=== PATIENT | male | born 1940 | race Caucasian/White ===

== ENCOUNTER 2020-05-17 11:27 | Emergency (ER) | payer MEDICARE, OTHER ==
[~2020-05-17] VITALS: Ht 172.7 cm; Wt 76.7 kg
[2020-05-17 11:29] VITALS: BP 130/75
--- NOTE | 2020-05-17 11:46 | NUR ---
PT'S DAUGTHER AT BEDSIDE
--- NOTE | 2020-05-17 11:46 | NUR ---
[facility] AND [employer] FOUND ON THE STRE[address] WALKING AROUND. PT IS CONFUSED BUT ABLE TO FOLLOW COMMANDS. NO MEDICAL COMPLAINTS. PT STATES THAT IT WAS HOT WALKING OUTSIDE. NOT NOTED VISUAL INJURY. MD WAS AT THE BEDSIDE FOR EVAL AND TALKING TO PT'S DAUGHTER
--- NOTE | 2020-05-17 11:59 | NUR ---
Patient discharged to home in stable condition under the care of pt's massimo. Written and verbal after care instructions given. Patient verbalizes understanding of instruction. Pt ambulatory with a steady gait w/ daughter by thept's side
== END 2020-05-17 12:00 | disposition home or self-care (01) ==
LOC: ER 11:36
DX: F03.90 Unspecified dementia, unspecified severity, without behavioral disturbance, psychotic disturbance, mood disturbance, and anxiety (principal); I10 Essential (primary) hypertension; E11.9 Type 2 diabetes mellitus without complications; N40.0 Benign prostatic hyperplasia without lower urinary tract symptoms; E03.9 Hypothyroidism, unspecified